=== PATIENT | male | born 1945 | race Caucasian/White ===

== ENCOUNTER 2017-06-10 16:42 | Emergency (ER) | payer OTHER ==
[2017-06-10 16:48] VITALS: BP 135/71; PULSE 76; RESP 16; TEMP 97.8; O2SAT 97
--- NOTE | 2017-06-10 17:25 | C.PDOC ---
History Of Present Illness 71-year-old male presents to the ED requesting prophylactic pertussis vaccination after possible exposure to pertussis. Patient denies any other complaints at this time. Time Seen by Provider: 06/10/17 16:49 Chief Complaint (Nursing): Medical Clearance History Per: Patient History/Exam Limitations: no limitations Onset/Duration Of Symptoms: Hrs Current Symptoms Are (Timing): Still Present Additional History Per: Patient Past Medical History Reviewed: Historical Data, Nursing Documentation, Vital Signs Vital Signs: Last Vital Signs Temp 97.8 F 06/10/17 16:44 Pulse 76 06/10/17 16:44 Resp 16 06/10/17 16:44 BP 135/71 06/10/17 16:44 Pulse Ox 97 06/10/17 18:13 - Medical History PMH: COPD Surgical History: Coronary Stent Family History: States: Unknown Family Hx - Social History Hx Alcohol Use: No Hx Substance Use: No - Immunization History Hx Tetanus Toxoid Vaccination: No Hx Influenza Vaccination: No Hx Pneumococcal Vaccination: No Review Of Systems Constitutional: Positive for: Other (+requesting prophylactic pertussis vaccination s/p exposure). Negative for: Fever, Chills Physical Exam - Physical Exam Appears: Non-toxic, No Acute Distress Skin: Normal Color, Warm, Dry Head: Atraumatic, Normacephalic Eye(s): bilateral: Normal Inspection Oral Mucosa: Moist Neck: Supple Chest: Symmetrical, No Deformity, No Tenderness Cardiovascular: Rhythm Regular, No Murmur Respiratory: Normal Breath Sounds, No Rales, No Rhonchi, No Wheezing Gastrointestinal/Abdominal: Soft, No Tenderness, No Guarding, No Rebound Back: Normal Inspection, No Vertebral Tenderness, No Paraspinal Tenderness Extremity: Normal ROM, Capillary Refill (less than 2 seconds ) Neurological/Psych: Oriented x3, Normal Speech, Normal Cognition Gait: Steady ED Course And Treatment O2 Sat by Pulse Oximetry: 97 (on RA) Pulse Ox Interpretation: Normal Progress Note: Patient received Adacel IM. On re-eval, pt is afebrile, hemodynamicaly stable. Non-toxic. Neuorlogicaly intact. Pt ref. to F/u with PMD In 2-3 days for re-eavl as need. Disposition Counseled Patient/Family Regarding: Diagnosis, Need For Followup - Disposition Referrals: Tra Blanchard DO [[facility]] - Disposition: HOME/ ROUTINE Disposition Time: 17:25 Condition: STABLE Instructions: Diphtheria Tetanus and Pertussis Vaccine (ED) Forms: [employer] ([place]) - Clinical Impression Clinical Impression: Need for DTaP vaccination - PA / [employer] / Resident Statement MD/DO has reviewed & agrees with the documentation as recorded. - Scribe Statement The provider has reviewed the documentation as recorded by the Scribe (Flor Browne) All medical record entries made by the Scribe were at my direction and personally dictated by me. I have reviewed the chart and agree that the record accurately reflects my personal performance of the history, physical exam, medical decision making, and the department course for this patient. I have also personally directed, reviewed, and agree with the discharge instructions and disposition.
== END 2017-06-10 17:32 | disposition home or self-care (01) ==
LOC: C.ER 16:42
DX: Z23 Encounter for immunization (principal)

== ENCOUNTER 2018-12-14 09:11 | Outpatient (CLI) | payer MEDICARE, OTHER | END 2018-12-14 09:12 | disposition home or self-care (01) | LOC: C.LAB 09:11 | DX: E78.2 Mixed hyperlipidemia (principal); E11.65 Type 2 diabetes mellitus with hyperglycemia ==